=== PATIENT | female | born 1960 ===

== ENCOUNTER 2017-07-06 10:00 | Inpatient (IN) | payer OTHER ==
[2017-07-13] MEDS ORDERED: TRANEXAMIC ACID 3,000 MG in NS 50 ML IRR ONE (07:20)
[2017-07-13] MEDS ORDERED: ACETAMINOPHEN 500 MG TAB PO ONE (07:20)
[2017-07-13] MEDS ORDERED: LIDOCAINE 1% 5 ML, BUPIVACAINE 0.5% 5 ML, morphINE PF 5 MG in SYRINGE 0 ML IU ONE (07:20)
--- NOTE | 2017-07-13 07:20 | PDHPUP ---
History & Physical Update H&P update statement: This history and physical update is based on an assessment of the patient which was completed after admission or registration (within 24 hours), but prior to the surgery/procedure. H&P update: H&P reviewed & patient examined, no change in patient's condition since H&P completed
[2017-07-13] MEDS ORDERED: CLINDAMYCIN 600 MG/DEXTROSE 50 ML IV ONE (07:23)
[2017-07-13] MEDS ORDERED: LR 1,000 ML IV SCH ×2 (07:30→13:00)
[2017-07-13] MEDS ORDERED: ROPI/epINEPH/KETOROLAC/morphINE IU ONE (08:30)
[2017-07-13] MEDS ORDERED: LIDOCAINE 1% 2 ML INJ ID PRN (09:11)
[2017-07-13] MEDS ORDERED: LR 1,000 ML IV ONE (09:11)
[2017-07-13] MEDS ORDERED: LIDOCAINE 1% 2 ML INJ ONE (09:15)
--- NOTE | 2017-07-13 10:08 | PDGENHP ---
History & Physical Chief Complaint: r knee pain History of Present Illness: r knee pain despite multiple consewrvative measures Pertinent Past, Social, Family History: na Relevant Physical Exam: rrr. cta. soft and nt. rle - varus angle with palpable spurs
[2017-07-13] MEDS ORDERED: BUPIVACAINE/EPI 0.5% 30 ML SDV ONE (10:14)
[2017-07-13] MEDS ORDERED: THROMBIN (BOVINE) 5,000 UNIT VIAL TP ONE (10:14)
[2017-07-13] MEDS ORDERED: CALCIUM CHLORIDE 1 GM/10 ML INJ ONE (10:14)
[2017-07-13] MEDS ORDERED: BACITRACIN 50,000 UNITS/10 ML SYR IRR ONE (10:15)
[2017-07-13] MEDS ORDERED: MIDAZOLAM 2 MG/2 ML VIAL IVP ONE (10:15)
[2017-07-13] MEDS ORDERED: POLYMYXIN B SULFATE 500,000 UNIT/10 ML SYR IRR ONE (10:15)
--- NOTE | 2017-07-13 10:15 | PDANEPAE ---
ANE History of Present Illness here for TKA ANE Past Medical History - Cardiovascular History Hx Hypertension: No Hx Arrhythmias: No Hx Chest Pain: No Hx Coronary Artery / Peripheral Vascular Disease: No Hx CHF / Valvular Disease: No Hx Palpitations: No - Pulmonary History Hx COPD: No Hx Asthma/Reactive Airway Disease: Yes Hx Recent Upper Respiratory Infection: No Hx Oxygen in Use at Home: No Hx Sleep Apnea: No Sleep Apnea Screening Result - Last Documented: Negative - Neurologic History Hx Cerebrovascular Accident: No Hx Seizures: No Hx Dementia: No Neurologic History Comment: history of NPH, 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/not currently bleeding - Cancer History Hx Cancer: Yes Cancer History Comment: breast ca - Congenital Disorder History Hx Congenital Disorders: No - GI History Hx Gastrointestinal Disorders: No - Other Health History Other Health History: no iv's to right arm, subclavian vein removed - Chronic Pain History Chronic Pain: Yes - Surgical History Prior Surgeries: rotator cuff,hernia repair, breast ca survivor with multiple debridments ANE Review of Systems Review of systems is: negative Review of Systems: - Exercise capacity Exercise capacity: >=4 METS METS (RN): 4 METS ANE Patient History - Allergies Allergies/Adverse Reactions: cephalexin [From Keflex] Allergy (Verified 06/28/17 10:54) Rash levofloxacin [From Levaquin] Allergy (Verified 06/28/17 10:54) red man's syndrome Penicillins Allergy (Verified 06/28/17 10:54) Rash Sulfa (Sulfonamide Antibiotics) Allergy (Verified 06/28/17 10:54) can't breathe vancomycin Allergy (Verified 06/28/17 10:54) Rash - Home Medications Home medications: home medication list seen and reviewed Home Medications: Cyclobenzaprine [Flexeril 10 MG (*)] 10 mg PO HS 06/28/17 [Last Taken 07/12/17 20:30] Diclofenac Sodium [Voltaren 75 MG (*)] 75 mg PO BID PRN 06/28/17 [Last Taken ] Herbals/Supplements -Info Only 1 ea PO DAILY 06/28/17 [Last Taken 07/06/17] Multivitamins [Multivitamin (*)] 1 each PO DAILY 06/28/17 [Last Taken 07/06/17] Oak[place]-3 Fatty Acids [Fish Oil 1000 mg (*)] 1,000 mg PO DAILY 06/28/17 [Last Taken 07/06/17] Zolpidem Tartrate [Ambien 10 mg] 10 mg PO HS 06/28/17 [Last Taken 07/12/17] oxyCODONE/APAP 5/325 [Percocet 5/325 (*)] 0.5 tab PO HS 06/28/17 [Last Taken 11/27 20:30] - NPO status NPO Since - Liquids (Date): 07/13/17 NPO Since - Liquids (Time): 02:00 NPO Since - Solids (Date): 07/12/17 NPO Since - Solids (Time): 21:00 - Smoking Hx Smoking Status: Never smoked - Family Anes Hx Family Hx Anesthesia Complications: none ANE Labs/Vital Signs - Vital Signs Blood Pressure: 148/90 Heart Rate: 72 Respiratory Rate: 20 O2 Sat (%): 99 Height: 162.56 cm Weight: 94.347 kg ANE Physical Exam - Airway Neck exam: FROM Mallampati Score: Class 1 Mouth exam: normal dental/mouth exam - Pulmonary Pulmonary: no respiratory distress - Cardiovascular Cardiovascular: regular rate and rhythym - ASA Status ASA Status: II ANE Anesthesia Plan Anesthesia Plan: GA w LMA Regional Anesthesia: single shot NB, adductor canal FNB
[2017-07-13] MEDS ORDERED: fentaNYL 100 MCG/2 ML INJ ONE ×6 (10:17→13:12)
[2017-07-13] MEDS ORDERED: PROPOFOL/EMULSION 500 MG/50 ML BOTTLE IV ONE (10:25)
[2017-07-13] MEDS ORDERED: METOCLOPRAMIDE 10 MG/2 ML VIAL IVP PRN ×2 (12:12→12:35)
[2017-07-13] MEDS ORDERED: DEXAMETHASONE 4 MG/ML VIAL IVP PRN (12:12)
[2017-07-13] MEDS ORDERED: LR 500 ML IV PRN (12:12)
[2017-07-13] MEDS ORDERED: ONDANSETRON 4 MG/2 ML VIAL IVP PRN (12:12)
[2017-07-13] MEDS ORDERED: ALBUTEROL 3 ML DEYVIAL IH PRN (12:12)
[2017-07-13] MEDS ORDERED: NALOXONE HCL 0.4 MG/ML INJ IVP PRN (12:12)
[2017-07-13] MEDS ORDERED: PROPOFOL 200 MG/20 ML VIAL ONE (12:17)
[2017-07-13] MEDS ORDERED: PROMETHAZINE HCL 25 MG/ML INJ IVP PRN (12:35)
[2017-07-13] MEDS ORDERED: BISACODYL 10 MG SUPP PR PRN (12:35)
[2017-07-13] MEDS ORDERED: MAGNESIUM HYDROXIDE 30 ML UDCUP PO PRN (12:35)
[2017-07-13] MEDS ORDERED: TEMAZEPAM 15 MG CAP PO PRN (12:35)
[2017-07-13] MEDS ORDERED: ONDANSETRON DISINTEGRATING 4 MG TAB PO PRN (12:35)
[2017-07-13] MEDS ORDERED: LACTULOSE 20 GM/30 ML UDCUP PO PRN (12:35)
[2017-07-13] MEDS ORDERED: DIPHENOXYLATE/ATROPINE LOMOTIL 1 TAB PO PRN (12:35)
[2017-07-13] MEDS ORDERED: PROMETHAZINE HCL 25 MG SUPPR PR PRN (12:35)
[2017-07-13] MEDS ORDERED: POLYETHYLENE GLYCOL 3350 17 GM PKT PO PRN (12:35)
[2017-07-13] MEDS ORDERED: TAPENTADOL HCL 50 MG TAB PO PRN (12:35)
--- NOTE | 2017-07-13 12:35 | POSTOPPROG ---
Post Op Note Date of Operation: 07/13/17 Surgeon: Ally Li Gate Watchman: isaac Anesthesiologist: rehana Anesthesia: LMA Pre-op Diagnosis: r knee oa Procedure: r tkr Inf/Abcess present in the surg proc area at time of surgery?: No Depth: Deep Incisional (Fascial) EBL: 100-500
[2017-07-13] MEDS ORDERED: ONDANSETRON 4 MG/2 ML VIAL ONE (12:50)
[2017-07-13] MEDS ORDERED: HYDROmorphONE/DILAUDID 1 MG/ML INJ ONE ×2 (12:50→13:22)
[2017-07-13] MEDS: fentaNYL 100 MCG/2 ML INJ IVP PRN ×4 (12:54→13:48)
[2017-07-13] MEDS: HYDROmorphONE/DILAUDID 1 MG/ML INJ IVP PRN ×3 (13:04→13:40)
[2017-07-13] MEDS ORDERED: KETOROLAC 30 MG/1 ML SDV ONE (13:22)
[2017-07-13] MEDS ORDERED: PROMETHAZINE HCL 25 MG/ML INJ ONE (13:22)
[2017-07-13] MEDS: PROMETHAZINE HCL 25 MG/ML INJ IVP PRN ×2 (13:25→13:48)
[2017-07-13] MEDS: KETOROLAC 30 MG/1 ML SDV IVP SCH (13:25)
[2017-07-13 14:53] VITALS: RESP 16
[2017-07-13] MEDS: CYCLOBENZAPRINE 10 MG TAB PO PRN ×2 (15:06→23:22)
[2017-07-13] MEDS: oxyCODONE IR 5 MG TAB PO PRN ×3 (15:06→23:22)
[2017-07-13] MEDS: diphenhydrAMINE 25 MG CAP PO PRN (16:30)
--- NOTE | 2017-07-13 16:50 | POSTANESTH ---
Post Anesthetic Evaluation Cardiovascular Status: Normal, Stable Respiratory Status: Normal, Stable Level of Consciousness/Mental Status: Can Participate in Eval Pain Control: Adequate, Prn Tx Ordered Nausea/Vomiting Control: Adequate, Prn Tx Ordered Complications Possibly Related to Anesthesia: None Noted
--- NOTE | 2017-07-13 17:50 | GOP ---
[f rep st] OPERATIVE REPORT DATE OF OPERATION: 07/13/2017 SURGEON: Ally Li MD TEACHER OF THE DEAF: Ceasar Wolf, CSFA, LSA, whose presence was medically necessary. ANESTHESIA: By LMA. PREOPERATIVE DIAGNOSIS: Right knee osteoarthritis. POSTOPERATIVE DIAGNOSIS: Right knee osteoarthritis. PROCEDURE PERFORMED: Right total knee arthroplasty. FINDINGS: INDICATIONS: This is a 56-year-old female with a long history of right knee pain worsening with use and with time despite multiple conservative measures. She wishes to have surgery to resolve the prob maryan. DESCRIPTION OF PROCEDURE: The patient was brought to the operating room after the right side had bee n identified as the correct side by the patient, nurse and physician. Once in the operating room, husam e was placed under general anesthesia using an LMA. Once asleep, a tourniquet placed around the uppe r portion the right thigh, with the right lower extremity then sterilely prepped and draped in usual fashion using GSI solution. Once prepped and draped, the limb was exsanguinated, tourniquet inflated to 300 mmHg. A linear incision was made on the anterior portion of the knee with sharp dissection c arried down through the skin and subcutaneous layers, with bleeding controlled using electrocautery. A medial parapatellar incision was made through the extensor mechanism with patella brought to the s gonzalo, but not everted. The ACL as well as the medial and lateral meniscus were removed. She was note d to have grade 4 chondral changes to the patellofemoral joint and medial compartment, as well as ext ensive grade 3 chondral changes of the lateral compartment. The custom jig was placed on the distal end of the femur and lug holes were drilled. The 2nd jig was then placed onto the femur with pins placed in the distal femur, and then pins placed in the cutting block. Once pins in the cutting block had been set, the jig was removed. An oscillating saw was us ed to remove the distal end of the femur. Once completed, the prior distal holes had pins reintroduc ed in them, and a 3-in-1 cutting block was placed onto the distal cut surface of the femur, with an a nterior, posterior and anterior chamfer cut made. Lug holes were drilled in the distal femur. This jig was subsequently removed, and the posterior cutting jig was put into place, and the posterior sarai mber cuts were made. Femoral trial was put into place, noted to fit securely. The knee was able to achieve full extension . The knee was brought back to full flexion. The femoral trial was removed. Attention was turned t o the tibia. The tibial jig was put into place. Its feet had been marked in order to leave a chicho on the cartilag e surface of the proximal tibia. Cartilage surface was then removed. The tip was placed back onto t he proximal tibia, pinned into place. It was noted to be in good alignment. Oscillating saw was use d to remove the proximal portion of the tibia. Trial femoral component and tibial component were put into place. The knee was easily able to achieve full extension. Therefore, the pins were removed f rom the proximal tibia. The knee was brought back to full flexion. Rotation had been marked. Tibia l trial was put back into place, pinned into place. A medullary reamer was passed into the proximal tibia as well as a keel punch. The trial was then subsequently removed. The knee was brought to ful l extension. Attention was turned to the patella, which was then everted using towel clamps. Measured to be 20 mm in thickness. Oscillating saw was used to remove the posterior portion of the patella, leaving 15 m m of bone. It was noted a 32 mm button seemed to fit best, and lug holes were drilled for the patell ar button. All cut surfaces of bone were then thoroughly irrigated with antibiotic solution using pulsatile lava ge. While cement was being mixed, the joint cocktail was injected in the posterior capsule, along th e periosteum of the femur and the tibia. Once cement had become doughy, it was placed on the proxima l side of the tibia with a custom-made tibial component put into place. Once in place, excess cement was removed using [place] elevators. Cement was then placed on the posterior skids of the femoral com ponent with cement placed on the distal and anterior portions of the cut surfaces of the femur. Cust om-made, cruciate-retaining femoral component from [employer] was put in place and excess cement rachel jayleen using [place] elevator. Trial liners were placed in the tibial tray. The knee was brought to full extension under pressurized cement. Cement was then placed on the cut surface of the patella, with a 32 mm patellar button clamped into place and excess cement removed using [place] elevator. Once ceme nt had adequately hardened, any excess cement that was found was removed using a combination of ronge ur and osteotome. Multiple trials were placed in the tibial tray. Once proper sizes were confirmed, a size A lateral insert was placed in the tibial tray after being thoroughly irrigated with antibiot ic solution, and then an 8 mm medial component was placed in the tibial tray after being irrigated wi th an antibiotic solution. Once in place, the knee was brought back to 30 degrees of flexion. Tourniquet was released at 67 min utes. Bleeding was controlled using electrocautery. Tranexamic acid was irrigated into the wound. The wound was then closed using 0 Vicryl suture in a dlmzrk-[id number] type stitch for the extensor mec hanism with plasmagel placed intra-articularly. 0 Vicryl and 2-0 Vicryl suture were used to close pace bcutaneous layers after tranexamic acid had been irrigated external to the extensor mechanism. Once the subcutaneous layers were closed, plasmagel was injected in the subcutaneous layers. 30 cc of Mar annemarie was infused into the subcutaneous layers. A 3-0 V-Loc suture in a running subcuticular stitch was used to close the skin. The wound was then dressed with Steri-Strips, Xeroform, 4 x 4's, wrapped in Kerlix. Leg was complete ly undraped in the operating room, tourniquet removed from the thigh and an Billy wrap placed around th e knee. The patient was then woken up, extubated, transferred onto a stretcher, and sent to recovery room in good condition. TOURNIQUET TIME: 67 minutes. /[id number]/MODL
[2017-07-13] MEDS: ACETAMINOPHEN 325 MG TAB PO SCH ×2 (18:33→23:22)
[2017-07-13] MEDS: CLINDAMYCIN 600 MG/DEXTROSE 50 ML IV SCH ×3 (18:33→18:40)
[2017-07-13] MEDS: traMADol 50 MG TAB PO SCH (18:41)
[2017-07-13] MEDS ORDERED: ZOLPIDEM TARTRATE 5 MG TAB PO SCH (21:00)
[2017-07-13] MEDS: SENNOSIDES/DOCUSATE SODIUM TAB PO SCH (21:43)
[2017-07-13] MEDS: FAMOTIDINE 20 MG TAB PO SCH (21:43)
[2017-07-13 23:27] VITALS: TEMP 98.4
[2017-07-14] MEDS: KETOROLAC 30 MG/1 ML SDV IVP SCH ×3 (00:21→10:56)
[2017-07-14] MEDS: traMADol 50 MG TAB PO SCH ×2 (01:06→06:30)
[2017-07-14] MEDS: CLINDAMYCIN 600 MG/DEXTROSE 50 ML IV SCH (02:41)
[2017-07-14 05:15] LABS: HEMATOCRIT 36.6 % (38.0-47.0)
[2017-07-14] MEDS: ACETAMINOPHEN 325 MG TAB PO SCH ×2 (05:50→10:56)
[2017-07-14] MEDS: oxyCODONE IR 5 MG TAB PO PRN ×2 (05:50→10:57)
[2017-07-14] MEDS: diphenhydrAMINE 25 MG CAP PO PRN ×2 (07:21→11:02)
[2017-07-14] MEDS: SENNOSIDES/DOCUSATE SODIUM TAB PO SCH (07:21)
[2017-07-14] MEDS: FAMOTIDINE 20 MG TAB PO SCH (07:22)
[2017-07-14] MEDS: CYCLOBENZAPRINE 10 MG TAB PO PRN (07:22)
[2017-07-14 08:18] VITALS: BP 132/90; PULSE 69; O2SAT 96
[2017-07-14] MEDS ORDERED: RIVAROXABAN 10 MG TAB PO SCH (09:00)
--- NOTE | 2017-07-14 09:31 | SOAPPROG ---
JEFFERY Progress Note Assessment/Plan: Assessment: Plan: - d/c xarelto, start ASA - d/c home with PT 07/14/17 09:29 Subjective: Pain is minimal, she feels ready to go home. Does not want to take xarelto Objective: Vital Signs Temp Pulse Resp BP Pulse Ox 36.9 C 69 16 132/90 H 96 07/14/17 04:00 07/14/17 08:17 07/14/17 08:17 07/14/17 08:17 07/14/17 08:17 Laboratory Results 07/14/17 04:31 07/13/17 07/14/17 07/15/17 05:59 05:59 05:59 Intake Total 2385 Output Total 1225 Balance 1160 Dressing CDI, would no drainage, calf NT, ROM 5 to 100, nvi - Time Spent With Patient Time Spent With Patient: 15 - Pending Discharge Pending Discharge Within 24 Hours: Yes Pending Discharge Within 48 Hours: No Pending Discharge Date: 07/15/17 Pending Discharge Time: 11:00 ICD10 Worksheet Patient Problems: Problems Problem Status Onset Arthritis of right knee Acute - ICD10 Problem Qualifiers (1) Arthritis of right knee
--- NOTE | 2017-07-14 09:38 | PDIAF ---
- Diagnosis Code Status: Full Code - Medication Management Discharge Medications: Medications to Continue on Transfer Cyclobenzaprine [Flexeril 10 MG (*)] 10 mg PO HS 06/28/17 [Last Taken 07/12/17 20:30] Diclofenac Sodium [Voltaren 75 MG (*)] 75 mg PO BID PRN 06/28/17 [Last Taken ] Herbals/Supplements -Info Only 1 ea PO DAILY 06/28/17 [Last Taken 07/06/17] Multivitamins [Multivitamin (*)] 1 each PO DAILY 06/28/17 [Last Taken 07/06/17] [place]-3 Fatty Acids [Fish Oil 1000 mg (*)] 1,000 mg PO DAILY 06/28/17 [Last Taken 07/06/17] Zolpidem Tartrate [Ambien 10 mg] 10 mg PO HS 06/28/17 [Last Taken 07/12/17] oxyCODONE/APAP 5/325 [Percocet 5/325 (*)] 0.5 tab PO HS 06/28/17 [Last Taken 11/27 20:30] Acetaminophen [Tylenol 325mg (*)] 650 mg PO Q6HRS tab 07/14/17 [Last Taken Unknown] Aspirin [Aspirin 81mg (*)] 81 mg PO DAILY tab.chew 07/14/17 [Last Taken Unknown ] Discharge Medications: Refer to the Discharge Home Medication list for PRN reason. PICC Care - Routine: N/A - Orders Services needed: Physical Therapy Diet Recommendation: no restrictions on diet Diet Texture: Regular Texture Diet Activity/Weight Bearing Restrictions: wbat - Follow Up Care Current Providers and Referrals: Darwin Sharma MD [Primary Care Provider] -
--- NOTE | 2017-07-14 11:28 | ASDISCHSUM ---
Discharge Information Plan Status:Home with Home Health Medically Cleared to Leave: Discharge Date:07/14/2017 11:18 AM D/C Disposition:Home Health Service ADT D/C Disposition:Home, Routine, Self-Care Projected Discharge Date:07/14/2017 11:00 AM Transportation at D/C: Discharge Delay Reason: Follow-Up Date:07/14/2017 11:00 AM Discharge Slot: Final Diagnosis: Placement Information Referral Type:*Home Health Care Services Referral ID:[id number] Provider Name:[facility] ([facility]) Address 1:[address] [address] Address 2: City:[place] Selection Factors: State:[place] Patient Contact Information Contact Name:DEAN Relationship: Address:[address] City:[place] Alternate Phone: State/Zip Code:[place] [address] Email: Financial Information Financial Class:HMO and PPO Plans Primary Plan Desc:[employer] Primary Plan Number:[id number] Secondary Plan Desc: Secondary Plan Number: Assessment Information [facility] CM Progress Note CM Note CM Note Notes: PT rec HHC. Pt medically stable for d/c w [facility]. Orders sent. Pt address/phone verified. Date Signed: 07/14/2017 11:26 AM Electronically Signed By:KISHORE Salinas Intervention Information
[2017-07-15] MEDS ORDERED: ASPIRIN 81 MG CHEWABLE TAB PO SCH (09:00)
== END 2017-07-14 11:18 | disposition home health service (06) | DRG 470 ==
LOC: F3E 07-13 08:32 → F3N 07-13 14:33
PROVIDERS: ADMIT Orthopaedic Surgery; ATTEND Orthopaedic Surgery
PROC: 0SRC0J9 Replacement of Right Knee Joint with Synthetic Substitute, Cemented, Open Approach (ICD-10-PCS; principal; 2017-07-13 09:45)
DX: M17.11 Unilateral primary osteoarthritis, right knee (principal); J45.909 Unspecified asthma, uncomplicated; Z85.3 Personal history of malignant neoplasm of breast
CPT/HCPCS: 97110-GP; 97116-GP; 97161-GP; 97165-GO; C1713; J0171; J1170; J1885; J2250; J2274; J2405; J2550; J2704; J2795; J3010